=== PATIENT | male | born 1945 | race Caucasian/White ===

== ENCOUNTER 2017-02-17 14:40 | Outpatient (CLI) | payer MEDICARE, BC | END 2017-02-17 14:41 | disposition home or self-care (01) | DX: B18.1 Chronic viral hepatitis B without delta-agent (principal) ==

== ENCOUNTER 2017-08-01 08:57 | Outpatient (CLI) | payer MEDICARE, BC ==
--- NOTE | 2017-08-01 11:30 | Ultrasound Report ---
COMPLETE ABDOMINAL ULTRASOUND: 08/01/2017 CLINICAL INDICATION: Chronic hepatitis B. TECHNIQUE: Real-time scanning was performed with inbound customer service representative static images obtained. FINDINGS: The liver measures 15 cm. Hepatic echotexture is again heterogeneous. 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 No suspicious solid hepatic l esion is seen. The common bile duct measures 7 mm. The gallbladder is unremarkable. The pancreas is n ormal. The kidneys demonstrate multiple cysts bilaterally. The right kidney measures 13 cm, and the l eft kidney measures 11.7 cm. No hydronephrosis or solid renal lesion is seen. The spleen measures 8.7 cm, and appears unremarkable. The abdominal aorta is normal in caliber. The inferior vena cava is un remarkable. No free fluid is present. IMPRESSION: STABLE APPEARANCE OF HEPATIC HEMANGIOMA AND HEPATIC CYSTS. NO SUSPICIOUS HEPATIC LESION. JOB #: [id number] EXT JOB #:[id number]
== END 2017-08-01 08:58 | disposition home or self-care (01) ==
LOC: DI 08:57
PROVIDERS: ATTEND Internal Medicine Gastroenterology
DX: B18.1 Chronic viral hepatitis B without delta-agent (principal); D18.03 Hemangioma of intra-abdominal structures; K76.89 Other specified diseases of liver
CPT/HCPCS: 76700

== ENCOUNTER 2017-09-01 14:11 | Outpatient (CLI) | payer MEDICARE, BC ==
[2017-09-01 18:20] LABS: BASOPHILS % (AUTO) 0.4 %; EOSINOPHILS # (AUTO) 0.1 10^3/uL (0.0-0.7); EOSINOPHILS % (AUTO) 0.9 %; HCT - HEMATOCRIT 39.4 % (42.0-52.0); HGB - HEMOGLOBIN 13.5 g/dL (14.0-18.0); LYMPHOCYTES # (AUTO) 0.9 10^3/uL (1.5-3.5); LYMPHOCYTES % (AUTO) 16.7 %; MEAN CORPUSCULAR HEMOGLOBIN 31.8 pg (27.0-31.0); MEAN CORPUSCULAR HGB CONC 34.1 g/dL (32.0-36.0); MEAN CORPUSCULAR VOLUME 93.2 fL (80.0-94.0); MEAN PLATELET VOLUME 8.9 fL (7.4-11.4); MONOCYTES # (AUTO) 0.4 10^3/uL (0.0-1.0); MONOCYTES % (AUTO) 6.4 %; NEUTROPHILS # (AUTO) 4.2 10^3/uL (1.5-6.6); NEUTROPHILS % (AUTO) 75.6 %; NUCLEATED RED BLOOD CELLS AUTO 0.1 /100WBC; RED BLOOD COUNT 4.23 10^6/uL (4.70-6.10); RED CELL DISTRIBUTION WIDTH 13.1 % (12.0-15.0); UNCORRECTED WHITE BLOOD COUNT 5.5 x10^3/uL; WHITE BLOOD COUNT 5.5 x10^3/uL (4.8-10.8)
[2017-09-01 18:34] LABS: ALBUMIN/GLOBULIN RATIO 1.5 (1.0-2.2); BILIRUBIN,TOTAL 0.7 mg/dL (0.2-1.0); CALCIUM 9.3 mg/dL (8.5-10.3); CREATININE 0.7 mg/dL (0.6-1.2); POTASSIUM 3.7 mmol/L (3.5-5.0)
[2017-09-06 11:42] LABS: TEST RESULT REPORT
== END 2017-09-01 14:12 | disposition home or self-care (01) ==
LOC: LAB.F 14:11
PROVIDERS: ATTEND Internal Medicine Gastroenterology
DX: B18.1 Chronic viral hepatitis B without delta-agent (principal)
CPT/HCPCS: 36415; 80053; 81599; 85025; 87517

== ENCOUNTER 2017-12-05 13:32 | Outpatient (CLI) | payer MEDICARE, BC | END 2017-12-05 13:33 | disposition EMS.NT | LOC: EMS 13:32 | PROVIDERS: ATTEND Surgery | DX: F41.9 Anxiety disorder, unspecified (principal) ==

== ENCOUNTER 2018-03-23 14:51 | Outpatient (CLI) | payer MEDICARE, BC ==
[2018-03-23 18:05] LABS: BASOPHILS % (AUTO) 0.8 %; EOSINOPHILS % (AUTO) 0.8 %; LYMPHOCYTES # (AUTO) 0.8 10^3/uL (1.5-3.5); LYMPHOCYTES % (AUTO) 16.5 %; MEAN CORPUSCULAR HEMOGLOBIN 31.4 pg (27.0-31.0); MEAN CORPUSCULAR HGB CONC 33.4 g/dL (32.0-36.0); MEAN PLATELET VOLUME 9.1 fL (7.4-11.4); MONOCYTES # (AUTO) 0.3 10^3/uL (0.0-1.0); MONOCYTES % (AUTO) 6.2 %; NEUTROPHILS # (AUTO) 3.5 10^3/uL (1.5-6.6); NEUTROPHILS % (AUTO) 75.7 %; PLT - PLATELET COUNT 155 10^3/uL (130-450); RED BLOOD COUNT 4.13 10^6/uL (4.70-6.10); RED CELL DISTRIBUTION WIDTH 13.5 % (12.0-15.0); WHITE BLOOD COUNT 4.6 x10^3/uL (4.8-10.8)
[2018-03-23 18:29] LABS: ALBUMIN 4.2 g/dL (3.2-5.5); ALBUMIN/GLOBULIN RATIO 1.4 (1.0-2.2); BILIRUBIN,TOTAL 1.1 mg/dL (0.2-1.0); CREATININE 0.6 mg/dL (0.6-1.2); TOTAL PROTEIN 7.1 g/dL (6.7-8.2)
[2018-03-23 19:25] LABS: CALCIUM 9.3 mg/dL (8.5-10.3)
== END 2018-03-23 14:52 | disposition home or self-care (01) ==
LOC: LAB.F 14:51
PROVIDERS: ATTEND Internal Medicine Gastroenterology
DX: Z12.11 Encounter for screening for malignant neoplasm of colon (principal); B18.1 Chronic viral hepatitis B without delta-agent
CPT/HCPCS: 36415; 80053; 81599; 85025; 87517

== ENCOUNTER 2018-11-03 08:24 | Outpatient (CLI) | payer MEDICARE, BC | END 2018-11-03 08:25 | disposition EMS.NT | LOC: EMS 08:24 | PROVIDERS: ATTEND Surgery | DX: H53.8 Other visual disturbances (principal); Z53.20 Procedure and treatment not carried out because of patient's decision for unspecified reasons ==

== ENCOUNTER 2019-01-18 15:24 | Outpatient (CLI) | payer MEDICARE, BC ==
[2019-01-18 17:55] LABS: EOSINOPHILS # (AUTO) 0.1 10^3/uL (0.0-0.7); EOSINOPHILS % (AUTO) 3.4 %; HGB - HEMOGLOBIN 12.7 g/dL (14.0-18.0); LYMPHOCYTES # (AUTO) 0.7 10^3/uL (1.5-3.5); MEAN CORPUSCULAR HEMOGLOBIN 32.1 pg (27.0-31.0); MEAN CORPUSCULAR HGB CONC 34.2 g/dL (32.0-36.0); MEAN CORPUSCULAR VOLUME 93.6 fL (80.0-94.0); MEAN PLATELET VOLUME 9.2 fL (7.4-11.4); MONOCYTES # (AUTO) 0.3 10^3/uL (0.0-1.0); MONOCYTES % (AUTO) 8.6 %; NEUTROPHILS # (AUTO) 1.9 10^3/uL (1.5-6.6); PLT - PLATELET COUNT 136 10^3/uL (130-450); RED BLOOD COUNT 3.96 10^6/uL (4.70-6.10); RED CELL DISTRIBUTION WIDTH 13.5 % (12.0-15.0)
[2019-01-18 17:59] LABS: ALBUMIN 4.2 g/dL (3.2-5.5); BILIRUBIN,DIRECT 0.1 mg/dL (0.1-0.5); BILIRUBIN,TOTAL 1.1 mg/dL (0.2-1.0); TOTAL PROTEIN 7.2 g/dL (6.7-8.2)
[2019-01-19 13:53] LABS: HEPATITIS B SURFACE ANTIGEN REACTIVE (NON-REACTIVE)
== END 2019-01-18 15:25 | disposition home or self-care (01) ==
LOC: LAB.F 15:24
PROVIDERS: ATTEND Internal Medicine Gastroenterology
DX: B18.1 Chronic viral hepatitis B without delta-agent (principal)
CPT/HCPCS: 36415; 80076; 81599; 82105; 85025; 87340; 87517

== ENCOUNTER 2019-02-08 14:45 | Outpatient (CLI) | payer MEDICARE, BC ==
[2019-02-08 18:03] LABS: % IRON SATURATION 24 % (20-50); IRON 86 ug/dL (45-182); TOTAL IRON BINDING CAPACITY 357 ug/dL (250-450); TRANSFERRIN 255 mg/dL (180-329)
== END 2019-02-08 14:46 | disposition home or self-care (01) ==
LOC: LAB.F 14:45
PROVIDERS: ATTEND Internal Medicine Gastroenterology
DX: Z12.11 Encounter for screening for malignant neoplasm of colon (principal); B18.1 Chronic viral hepatitis B without delta-agent
CPT/HCPCS: 36415; 82728; 83540; 84466

== ENCOUNTER 2023-05-08 10:13 | Outpatient (CLI) | payer MEDICARE, BC ==
--- NOTE | 2023-05-09 09:39 | Ultrasound Report ---
PROCEDURE: Abdomen Limited INDICATIONS: HEPATITIS B TECHNIQUE: Real-time focused scanning was performed of the abdomen, with image documentation. COMPARISONS: None. FINDINGS: Liver: Liver is normal in size and liver parenchymal echotexture. Multiple hepatic cysts are seen richard sures up to 1.7 x 1.6 x 1.9 cm in size in right hepatic lobe. Hypoechoic area involving inferior aspe ct of right hepatic lobe is seen and measures up to 2.7 x 2 x 3.4 cm in size. No internal vascularity is noted. Gallbladder: Unremarkable. Biliary ducts: Intrahepatic bile ducts are non-dilated. Extrahepatic bile duct caliber measures 8.4 mm. Normal is 6-7 mm or less in diameter, or 10 mm or less post-cholecystectomy. Pancreas: Visualized portions of the pancreas are sonographically normal. Right kidney: Normal in size and echotexture. Right kidney measures 10 cm long. No hydronephrosis or nephrolithiasis. No solid masses. Septated right renal cyst measures 10.6 x 5 x 10.3 cm in size is seen. No internal vascularity. Aorta: Visualized aorta is normal in caliber at less than 3 cm. IVC: Intrahepatic inferior vena cava is patent. Miscellaneous: No free abdominal fluid. IMPRESSION: 1. Multiple hepatic cysts as above. 2. Hyperechoic area involving inferior right hepatic lobe and show no definite vascularity. Finding c ould represent hemangioma. Clinical and radiographic follow-up is recommended. Dedicated MRI of abdom en without and with contrast can also be done for further evaluation of this area. 3. Large septated right renal cyst as above. No hydronephrosis or gross solid appearing hepatic lesio n. 4. Borderline dilated common bile duct, no gross choledocholithiasis. Reviewed by: Collin Lancaster MD on 05/09/2023 9:37 AM PDT Approved by: Collin Lancaster MD on 05/09/2023 9:37 AM PDT Station ID: [id number]
== END 2023-05-08 10:14 | disposition home or self-care (01) ==
LOC: DI 10:13
PROVIDERS: ATTEND Internal Medicine Gastroenterology
DX: B18.1 Chronic viral hepatitis B without delta-agent (principal); K76.89 Other specified diseases of liver; N28.1 Cyst of kidney, acquired